=== PATIENT | male | born 1960 | race Caucasian/White ===

== ENCOUNTER 2022-04-19 13:10 | Emergency (ER) | payer MEDICAID ==
[2022-04-19 16:04] VITALS: PULSE 54
--- NOTE | 2022-04-19 16:23 | ED ---
SOB HPI - General Chief Complaint: Shortness of Breath Stated Complaint: SOB Time Seen by Provider: 04/19/22 15:55 Source: patient, family, RN notes reviewed Mode of arrival: ambulatory Limitations: no limitations - History of Present Illness Initial Comments: 61-year-old male with no prior history of heart or lung disease who presents with complaints of shortness of breath and low oxygen saturation from an urgent care clinic. Patient did test positive for colon he started having some symptoms of rhinorrhea cough upper respiratory type symptoms after coming over here hunting. He reports his saturation was 85% on room air at the clinic. He did test positive for cocaine at the clinic. Symptoms apparently started yesterday. No palpitations no chest pain no other complaints or modifying factors he does have chronic lower extremity edema from vascular insufficiency he states. The pain is no worse than usual MD Complaint: shortness of breath, cough - Related Data Home Medications Medication Instructions Recorded Confirmed Colchicine 0.6 mg PO DAILY PRN 04/19/22 04/19/22 Ibuprofen [Motrin Ib] 800 mg PO Q8H PRN 04/19/22 04/19/22 allopurinoL 300 mg PO DAILY 04/19/22 04/19/22 amLODIPine [Norvasc] 5 mg PO DAILY 04/19/22 04/19/22 atenoloL 25 mg PO DAILY 04/19/22 04/19/22 lisinopriL 30 mg PO DAILY 04/19/22 04/19/22 Previous Rx's Medication Instructions Recorded Nirmatrelvir/Ritonavir [Paxlovid 1 each PO AC-BID #10 each 04/19/22 150-100 mg Pack (Eua)] Allergies Allergy/AdvReac Type Severity Reaction Status Date / Time No Known Allergies Allergy Verified 04/19/22 17:10 Review of Systems ROS Statement: Those systems with pertinent positive or pertinent negative responses have been documented in the HPI. ROS Other: All systems not noted in ROS Statement are negative. Past Medical History Past Medical History: Hypertension History of Any Multi-Drug Resistant Organisms: None Reported Past Surgical History: Joint Replacement Additional Past Surgical History / Comment(s): r shoulder replacement, bilateral knee replacement. Past Psychological History: No Psychological Hx Reported Smoking Status: Never smoker Past Alcohol Use History: Occasional Past Drug Use History: None Reported General Exam - General Exam Comments Initial Comments: This is a well-developed well-nourished awake alert oriented 4 male Limitations: no limitations General appearance: alert, in no apparent distress Head exam: Present: atraumatic, normocephalic, normal inspection Eye exam: Present: normal appearance, PERRL, EOMI. Absent: scleral icterus, conjunctival injection, periorbital swelling ENT exam: Present: normal exam, mucous membranes moist Neck exam: Present: normal inspection, full ROM, other (No stridor JVD or bruits). Absent: tenderness, meningismus, lymphadenopathy Respiratory exam: Present: normal lung sounds bilaterally. Absent: respiratory distress, wheezes, rales, rhonchi, stridor Cardiovascular Exam: Present: normal rhythm, bradycardia, normal heart sounds. Absent: systolic murmur, diastolic murmur, rubs, gallop, clicks GI/Abdominal exam: Present: soft, normal bowel sounds. Absent: distended, tenderness, guarding, rebound, rigid Extremities exam: Present: full ROM, normal capillary refill, pedal edema. Absent: tenderness, joint swelling, calf tenderness Back exam: Present: normal inspection Neurological exam: Present: alert, oriented X3, CN II-XII intact Psychiatric exam: Present: normal affect, normal mood Skin exam: Present: warm, dry, intact, normal color. Absent: rash Course Vital Signs 04/19/22 04/19/22 04/19/22 14:07 15:40 16:03 Temperature 98.1 F Pulse Rate 52 L 54 L Respiratory 22 22 22 Rate Blood Pressure 157/76 148/90 O2 Sat by Pulse 93 L 94 L Oximetry Medical Decision Making - Medical Decision Making I did discuss findings with the patient and his . Patient does have COVID- 19. We did discuss him and see vitamin D3 and zinc. Patient will be placed on Paxlovid we did also discuss the possibility of the lymph node in the right side of his chest x-ray he will follow-up with his doctor for further evaluation. - Lab Data Result diagrams: 04/19/22 16:59 04/19/22 16:59 Lab Results 04/19/22 04/19/22 04/19/22 Range/Units 16:59 16:59 16:59 WBC 7.3 (3.8-10.6) k/uL RBC 4.70 (4.30-5.90) m/uL Hgb 14.5 (13.0-17.5) gm/dL Hct 43.3 (39.0-53.0) % MCV 92.2 (80.0-100.0) fL MCH 30.9 (25.0-35.0) pg MCHC 33.5 (31.0-37.0) g/dL RDW 14.4 (11.5-15.5) % Plt Count 137 L (150-450) k/uL MPV 9.8 Neutrophils % (Manual) 53 % Lymphocytes % (Manual) 34 % Monocytes % (Manual) 11 % Eosinophils % (Manual) 2 % Neutrophils # (Manual) 3.87 (1.3-7.7) k/uL Lymphocytes # (Manual) 2.48 (1.0-4.8) k/uL Monocytes # (Manual) 0.80 (0-1.0) k/uL Eosinophils # (Manual) 0.15 (0-0.7) k/uL Nucleated RBCs 0 (0-0) /100 WBC Manual Slide Review Performed PT 11.1 (9.0-12.0) sec INR 1.0 (<1.2) APTT 27.4 (22.0-30.0) sec D-Dimer 0.43 (<0.60) mg/L FEU Sodium 138 (137-145) mmol/L Potassium 4.3 (3.5-5.1) mmol/L Chloride 101 (98-107) mmol/L Carbon Dioxide 24 (22-30) mmol/L Anion Gap 13 mmol/L BUN 14 (9-20) mg/dL Creatinine 0.65 L (0.66-1.25) mg/dL Est GFR (CKD-EPI)AfAm >90 (>60 ml/min/1.73 sqM) Est GFR (CKD-EPI)NonAf >90 (>60 ml/min/1.73 sqM) Glucose 100 H (74-99) mg/dL Plasma Lactic Acid Sadi (0.7-2.0) mmol/L Calcium 9.0 (8.4-10.2) mg/dL Magnesium 1.9 (1.6-2.3) mg/dL Total Bilirubin 0.7 (0.2-1.3) mg/dL AST 45 (17-59) U/L ALT 40 (4-49) U/L Alkaline Phosphatase 76 (38-126) U/L Troponin I (0.000-0.034) ng/mL NT-Pro-B Natriuret Pep pg/mL Total Protein 6.8 (6.3-8.2) g/dL Albumin 4.2 (3.5-5.0) g/dL 04/19/22 04/19/22 04/19/22 Range/Units 16:59 16:59 16:59 WBC (3.8-10.6) k/uL RBC (4.30-5.90) m/uL Hgb (13.0-17.5) gm/dL Hct (39.0-53.0) % MCV (80.0-100.0) fL MCH (25.0-35.0) pg MCHC (31.0-37.0) g/dL RDW (11.5-15.5) % Plt Count (150-450) k/uL MPV Neutrophils % (Manual) % Lymphocytes % (Manual) % Monocytes % (Manual) % Eosinophils % (Manual) % Neutrophils # (Manual) (1.3-7.7) k/uL Lymphocytes # (Manual) (1.0-4.8) k/uL Monocytes # (Manual) (0-1.0) k/uL Eosinophils # (Manual) (0-0.7) k/uL Nucleated RBCs (0-0) /100 WBC Manual Slide Review PT (9.0-12.0) sec INR (<1.2) APTT (22.0-30.0) sec D-Dimer (<0.60) mg/L FEU Sodium (137-145) mmol/L Potassium (3.5-5.1) mmol/L Chloride (98-107) mmol/L Carbon Dioxide (22-30) mmol/L Anion Gap mmol/L BUN (9-20) mg/dL Creatinine (0.66-1.25) mg/dL Est GFR (CKD-EPI)AfAm (>60 ml/min/1.73 sqM) Est GFR (CKD-EPI)NonAf (>60 ml/min/1.73 sqM) Glucose (74-99) mg/dL Plasma Lactic Acid Sadi 1.0 (0.7-2.0) mmol/L Calcium (8.4-10.2) mg/dL Magnesium (1.6-2.3) mg/dL Total Bilirubin (0.2-1.3) mg/dL AST (17-59) U/L ALT (4-49) U/L Alkaline Phosphatase (38-126) U/L Troponin I 0.017 (0.000-0.034) ng/mL NT-Pro-B Natriuret Pep 532 pg/mL Total Protein (6.3-8.2) g/dL Albumin (3.5-5.0) g/dL - EKG Data -: EKG Interpreted by Me EKG shows normal: sinus rhythm EKG Comments: Sinus bradycardia rate 56 AL interval 265 QRS duration 08/03/1969 QT since QTC 452/444 evidence of first 3 AV block interventricular conduction leg no acute ST-T wave changes Disposition Clinical Impression: COVID-19, Dyspnea Disposition: HOME SELF-CARE Condition: Good Additional Instructions: Vitamin C 1000 mg per day, vitamin D3 [id number] international units daily, zinc as discussed Prescriptions: Nirmatrelvir/Ritonavir [Paxlovid 150-100 mg Pack (Eua)] 1 each PO AC-BID #10 each Is patient prescribed a controlled substance at d/c from ED?: No Referrals: None,Stated [REFERRING] - 1-2 days Decision Date: 04/19/22 Decision Time: 18:11
--- NOTE | 2022-04-19 17:08 | XR ---
EXAMINATION TYPE: XR chest 2V DATE OF EXAM: 04/19/2022 5:02 PM COMPARISON: Chest radiographs from TECHNIQUE: XR chest 2V Frontal and lateral views of the chest. CLINICAL INDICATION:Male, 61 years old with history of difficulty breathing; FINDINGS: Lungs/Pleura: There is no evidence of pleural effusion, focal consolidation, or pneumothorax. Elevat ed right diaphragm. Pulmonary vascularity: Unremarkable. Heart/mediastinum: Cardiomediastinal silhouette is enlarged. Increase opacity within the right hilar region. Musculoskeletal: No acute osseous pathology. IMPRESSION: Right perihilar increase opacity which may be summation of overlying tissues with underlying lymphade nopathy not entirely ruled out. Consider further evaluation with CT chest.
[2022-04-19 17:13] LABS: HCT 43.3 % (39.0-53.0); HGB 14.5 gm/dL (13.0-17.5); MCH 30.9 pg (25.0-35.0); MCHC 33.5 g/dL (31.0-37.0); MCV 92.2 fL (80.0-100.0); Mean Platelet Volume 9.8; Platelet Count 137 k/uL (150-450); RDW 14.4 % (11.5-15.5); WBC 7.3 k/uL (3.8-10.6)
[2022-04-19 17:18] LABS: ALT 40 U/L (4-49); AST 45 U/L (17-59); African American GFR (CKD) >90 (>60 ml/min/1.73 sqM); Albumin 4.2 g/dL (3.5-5.0); Alkaline Phosphatase 76 U/L (38-126); Anion Gap 13 mmol/L; Blood Urea Nitrogen 14 mg/dL (9-20); Carbon Dioxide 24 mmol/L (22-30); Chloride 101 mmol/L (98-107); Glucose 100 mg/dL (74-99); Magnesium 1.9 mg/dL (1.6-2.3); Non-African American GFR(CKD) >90 (>60 ml/min/1.73 sqM); Potassium 4.3 mmol/L (3.5-5.1); Sodium 138 mmol/L (137-145); Total Bilirubin 0.7 mg/dL (0.2-1.3); Total Protein 6.8 g/dL (6.3-8.2)
[2022-04-19 17:21] LABS: Partial Thromboplastin Time 27.4 sec (22.0-30.0); Prothrombin Time 11.1 sec (9.0-12.0)
[2022-04-19 17:42] LABS: Eosinophils # (M) 0.15 k/uL (0-0.7); Lymphocytes # (M) 2.48 k/uL (1.0-4.8); Neutrophils # (M) 3.87 k/uL (1.3-7.7); Neutrophils % (M) 53 %; Nucleated Red Blood Cells 0 /100 WBC (0-0); Total Cells Counted 100
[2022-04-19 18:20] VITALS: BP 135/72; RESP 20; TEMP 98.9
== END 2022-04-19 18:18 | disposition home or self-care (01) ==
LOC: EC 13:10
DX: U07.1 COVID-19 (principal); I10 Essential (primary) hypertension; Z79.82 Long term (current) use of aspirin
CPT/HCPCS: 36415; 71046; 80053; 83605; 83735; 83880; 84484; 85025; 85379; 85610; 85730; 93005; 99285

== ENCOUNTER → 2023-01-11 | Day surgery (SDC) | payer BC ==
[~2023-01-11] MED LIST: ALPRAZolam 0.25 MG TAB PO PRN; ALPRAZolam 0.5 MG TAB PO PRN; ASPIRIN 325 MG TAB PO STA; HEPARIN SODIUM 1,000 UN/ML (10ML VL) IV ONE; HEPARIN SODIUM 1,000 UN/ML (10ML VL) ONE; IOPAMIDOL-370 100ML BTL INJ ONE; LIDOCAINE 1% INJ 10MG/ML (5 ML VIAL-PF) SQ ONE; MIDAZOLAM 2 MG/2 ML VIAL IVP ONE; NITROGLYCERIN SL TABS 0.4 MG TAB SUBLINGUAL PRN; SODIUM CHLORIDE 0.9% 1,000 ML in EMPTY BAG 1 BAG IV SCH; VERAPAMIL 2.5 MG/ML 2 ML AMP ONE; VERAPAMIL SYRINGE (5 MG/10 ML) INTRAARTER ONE; fentaNYL (PF) 50 MCG/ML 2 ML AMP IVP ONE; fentaNYL (PF) 50 MCG/ML 2 ML AMP ONE
[2023-01-11 07:25] VITALS: TEMP 97.7
[2023-01-11 07:27] LABS: Basophils % (A) 1 %; Eosinophils # (A) 0.3 k/uL (0-0.7); Eosinophils % (A) 4 %; HCT 46.1 % (39.0-53.0); HGB 15.9 gm/dL (13.0-17.5); Lymphocytes # (A) 1.9 k/uL (1.0-4.8); Lymphocytes % (A) 22 %; MCHC 34.4 g/dL (31.0-37.0); MCV 95.7 fL (80.0-100.0); Mean Platelet Volume 8.5; Monocytes # (A) 0.5 k/uL (0-1.0); Monocytes % (A) 6 %; Neutrophils # (A) 5.6 k/uL (1.3-7.7); Neutrophils % (A) 66 %; Platelet Count 162 k/uL (150-450); RBC 4.82 m/uL (4.30-5.90); RDW 13.6 % (11.5-15.5); WBC 8.5 k/uL (3.8-10.6)
[2023-01-11 07:47] LABS: African American GFR (CKD) >90 (>60 ml/min/1.73 sqM); Anion Gap 8 mmol/L; Blood Urea Nitrogen 15 mg/dL (9-20); Calcium 9.1 mg/dL (8.4-10.2); Carbon Dioxide 27 mmol/L (22-30); Chloride 105 mmol/L (98-107); Glucose 121 mg/dL (74-99); Non-African American GFR(CKD) >90 (>60 ml/min/1.73 sqM); Potassium 4.4 mmol/L (3.5-5.1); Sodium 140 mmol/L (137-145)
--- NOTE | 2023-01-11 10:21 | CC ---
CARDIAC CATHETERIZATION REPORT REFERRING PHYSICIAN: Dr. Fermin Loyns. INDICATIONS: Cardiomyopathy with moderate LV systolic dysfunction. PROCEDURE NOTE: After obtaining informed consent, left heart catheterization and coronary angiogram were performed via right radial artery using standard [place] catheters. The patient tolerated the procedure well without any obvious immediate complications. A TR band was used for hemostasis. FINDINGS: HEMODYNAMICS: 1. Left ventricular end-diastolic pressure is 22 mm. There is no significant gradient across the aortic valve. 2. Left ventriculogram: Left ventriculogram was not performed. ANGIOGRAPHIC DATA: The images were suboptimal secondary to body size and a tortuous subclavian and difficulty in positioning the catheters. Right coronary artery is a small nondominant vessel and is free of significant stenosis. Left main coronary artery is a short vessel and is free of disease, it divides into left anterior descending coronary artery and circumflex coronary artery. Circumflex coronary artery is a large dominant vessel and is free of significant stenosis. LAD and its branches are free of significant stenosis. CONCLUSIONS: left-dominant circulation. PLAN: I reviewed angiographic data with the patient and told him that his cardiomyopathy is nonischemic in etiology and we will manage him aggressive medical therapy and follow his LV function. MMODL / IJN: [id number] /
--- NOTE | 2023-01-11 11:27 | LTR ---
Dear Dr. Lyons: I performed cardiac catheterization on Ryan Cuadra. A detailed catheterization note is enclosed for your records. In brief, cardiac catheterization did not reveal significant obstructive CAD, cardiomyopathy seen nonischemic in etiology. Thank you for giving me the privilege to participate in the care of this pleasant gentleman. MMLEIF / RADHA: [id number] /
[2023-01-11 15:35] VITALS: BP 136/70; PULSE 58; RESP 16
== END ==
LOC: CATHCVL 06:48
PROVIDERS: ATTEND Internal Medicine Cardiovascular Disease
DX: I25.10 Atherosclerotic heart disease of native coronary artery without angina pectoris (principal); I42.0 Dilated cardiomyopathy; I10 Essential (primary) hypertension; E78.5 Hyperlipidemia, unspecified; Z82.49 Family history of ischemic heart disease and other diseases of the circulatory system; Z79.899 Other long term (current) drug therapy
CPT/HCPCS: 93458; 80048; 85025; C1769; C1894; J2250; J2001; J3010; J1644; Q9967